=== PATIENT | female | born 1975 | race African-American/Black ===

== ENCOUNTER 2018-04-19 09:46 | Inpatient (IN) | payer SELFPAY, OTHER ==
[2018-04-19 10:04] LABS: POC GLUCOSE 436 mg/dL (70-99)
[2018-04-19 10:55] LABS: ADD MAN DIFF? NO
[2018-04-19 10:57] LABS: BASO # 0.1 x10^3/uL (0.0-0.2); BASO % 1 % (0-3); EOS # 0.2 x10^3/uL (0.0-0.7); EOS % 2 % (0-3); HEMATOCRIT 47.3 % (36.0-47.0); HEMOGLOBIN 15.9 g/dL (12.0-15.5); LYMPH # 3.9 x10^3/uL (1.0-4.8); LYMPH % 36 % (24-48); MEAN CORPUSCULAR HEMOGLOBIN 28 pg (25-35); MEAN CORPUSCULAR HGB CONC 34 g/dL (31-37); MEAN CORPUSCULAR VOLUME 83 fL (79-100); MONO # 0.6 x10^3/uL (0.0-1.1); MONO % 6 % (0-9); NEUT # 6.2 x10^3uL (1.8-7.7); NEUT % 56 % (31-73); PLATELET COUNT 312 x10^3/uL (140-400); RED CELL DISTRIBUTION WIDTH 13.5 % (11.5-14.5)
[2018-04-19 11:10] LABS: ANION GAP 11 (6-14); BLOOD UREA NITROGEN 12 mg/dL (7-20); BUN/CREATININE RATIO 15 (6-20); CALCIUM 9.1 mg/dL (8.5-10.1); CARBON DIOXIDE 24 mmol/L (21-32); CHLORIDE 97 mmol/L (98-107); CREATININE 0.8 mg/dL (0.6-1.0); GFR 95.6; GLUCOSE 403 mg/dL (70-99); POTASSIUM 4.1 mmol/L (3.5-5.1); SODIUM 132 mmol/L (136-145)
[2018-04-19 11:13] LABS: ALBUMIN 3.5 g/dL (3.4-5.0); ALBUMIN/GLOBULIN RATIO 0.9 (1.0-1.7); ALK PHOS 84 U/L (46-116); ALT (SGPT) 14 U/L (14-59); AST (SGOT) 9 U/L (15-37); TOTAL BILIRUBIN 0.8 mg/dL (0.2-1.0); TOTAL PROTEIN 7.6 g/dL (6.4-8.2)
[2018-04-19] MEDS ORDERED: IOHEXOL 300 MG/ML 100ML VIAL. (11:16)
[2018-04-19 11:17] LABS: TROPONINI 0.072 ng/mL (0.000-0.055)
[2018-04-19] MEDS: IOHEXOL 300 MG/ML 100ML VIAL. IV (11:26)
[2018-04-19] MEDS ORDERED: CONTRAST GIVEN. MC (11:30)
[2018-04-19] MEDS: ASPIRIN CHEWABLE 81 MG TABLET. PO (13:11)
[2018-04-19] MEDS: LABETALOL 20 MG/4 ML DISP.SYRIN. IVP (13:44)
[2018-04-19] MEDS: INSULIN REGULAR 100 UNIT/ML 3ML VIAL. IV (13:46)
[2018-04-19 15:38] LABS: AGAP ISTAT 19 mmol/L (6-14); BUN ISTAT 11 mg/dL (8-26); CHLORIDE ISTAT 97 mmol/L (98-110); CREATININE ISTAT 0.6 mg/dL (0.5-1.4); GLUCOSE ISTAT 398 mg/dL (70-99); HEMATOCRIT ISTAT 48 % (36-40); HEMOGLOBIN ISTAT 16.3 g/dL (12-15); ION CA ISTAT 1.16 mmol/L (1.13-1.32); POTASSIUM ISTAT 4.1 mmol/L (3.5-5.0); SODIUM ISTAT 134 mmol/L (135-145); TOT CO2 ISTAT 23 mmol/L (23-32)
[2018-04-19 17:08] LABS: MAGNESIUM 1.7 mg/dL (1.8-2.4)
[2018-04-19 17:27] LABS: THYROID STIM HORMONE (TSH) 0.805 uIU/mL (0.358-3.74)
[2018-04-19] MEDS ORDERED: DEXTROSE 50% 25 GM / 50ML DISP.SYRIN. IV (17:45)
[2018-04-19 18:35] LABS: POC GLUCOSE 277 mg/dL (70-99)
[2018-04-19] MEDS: INSULIN LISPRO 300 UNITS/3 ML INSULN.PEN. SQ (18:41)
[2018-04-19 20:26] LABS: POC GLUCOSE 363 mg/dL (70-99)
[2018-04-19] MEDS: MAGNESIUM SULFATE 1GM 100 ML IV (20:40)
[2018-04-19] MEDS: AMOXICILLIN/K CLAV 875/125MG TABLET. PO (20:40)
[2018-04-19] MEDS ORDERED: TOBRAMYCIN 0.3% OPHTH SOLUTION 5ML BOTTLE. OD (21:00)
[2018-04-19] MEDS ORDERED: DEXAMETHASONE 0.1% OPHTH SOLUTION 5ML BOTTLE. OD (21:00)
[2018-04-19] MEDS ORDERED: TOBRAMYCIN OD (21:00)
[2018-04-19] MEDS ORDERED: DEXAMETHASONE OD (21:00)
[2018-04-20 02:22] LABS: BILIRUBIN,URINE NEGATIVE (NEG); CLARITY,URINE CLEAR; COLOR,URINE YELLOW; GLUCOSE,URINE >=1000 mg/dL (NEG); NITRITE,URINE NEGATIVE (NEG); PROTEIN,URINE NEGATIVE (NEG-TRACE)
[2018-04-20 02:27] LABS: BARBITURATES NEG (NEG); BENZODIAZEPINES NEG (NEG); CANNABINOIDS POS (NEG); COCAINE NEG (NEG); METHADONE NEG (NEG); OPIATES NEG (NEG); PHENCYCLIDINE NEG (NEG)
[2018-04-20 02:38] LABS: BACTERIA,URINE 0 /HPF (0-FEW); RBC,URINE OCC /HPF (0-2); SQUAMOUS EPITHELIAL CELL,UR FEW /LPF; WBC,URINE OCC /HPF (0-4)
[2018-04-20 02:42] LABS: AMPHETAMINE/METHAMPHETAMINE NEG (NEG); ETHANOL, URINE NEG (NEG)
[2018-04-20] MEDS: hydrALAZINE 20 MG/ML VIAL. IVP (03:52)
[2018-04-20 04:07] LABS: ADD MAN DIFF? NO
[2018-04-20 04:20] LABS: BASO # 0.1 x10^3/uL (0.0-0.2); BASO % 1 % (0-3); EOS # 0.3 x10^3/uL (0.0-0.7); EOS % 2 % (0-3); HEMATOCRIT 45.6 % (36.0-47.0); HEMOGLOBIN 15.2 g/dL (12.0-15.5); LYMPH # 3.8 x10^3/uL (1.0-4.8); LYMPH % 35 % (24-48); MEAN CORPUSCULAR HEMOGLOBIN 28 pg (25-35); MEAN CORPUSCULAR HGB CONC 33 g/dL (31-37); MEAN CORPUSCULAR VOLUME 83 fL (79-100); MONO # 0.8 x10^3/uL (0.0-1.1); MONO % 7 % (0-9); NEUT # 6.1 x10^3uL (1.8-7.7); NEUT % 55 % (31-73); PLATELET COUNT 286 x10^3/uL (140-400); RED BLOOD COUNT 5.48 x10^6/uL (3.50-5.40); RED CELL DISTRIBUTION WIDTH 13.1 % (11.5-14.5)
[2018-04-20 04:33] LABS: ALBUMIN 3.2 g/dL (3.4-5.0); ALBUMIN/GLOBULIN RATIO 0.8 (1.0-1.7); ALK PHOS 83 U/L (46-116); ALT (SGPT) 13 U/L (14-59); ANION GAP 8 (6-14); AST (SGOT) 11 U/L (15-37); BLOOD UREA NITROGEN 10 mg/dL (7-20); BUN/CREATININE RATIO 13 (6-20); CALCIUM 8.7 mg/dL (8.5-10.1); CARBON DIOXIDE 26 mmol/L (21-32); CHLORIDE 100 mmol/L (98-107); CREATININE 0.8 mg/dL (0.6-1.0); GFR 95.6; GLUCOSE 325 mg/dL (70-99); POTASSIUM 4.1 mmol/L (3.5-5.1); SODIUM 134 mmol/L (136-145); TOTAL BILIRUBIN 0.6 mg/dL (0.2-1.0); TOTAL PROTEIN 7.1 g/dL (6.4-8.2)
[2018-04-20 04:35] LABS: CHOLESTEROL 236 mg/dL (0-200); HDLC 30 mg/dL (40-60); LDLC 167 mg/dL (0-100); NON-HDL CHOLESTEROL 206 mg/dL (0-129); TRIGLYCERIDES 197 mg/dL (0-150); VLDLC 39 mg/dL (0-40)
[2018-04-20 04:39] LABS: CHOLESTEROL/HDL RATIO 7.9
[2018-04-20 07:55] LABS: POC GLUCOSE 334 mg/dL (70-99)
[2018-04-20] MEDS ORDERED: DEXTROSE 50% 25 GM / 50ML DISP.SYRIN. IV (08:30)
[2018-04-20] MEDS ORDERED: LABETALOL 20 MG/4 ML DISP.SYRIN. IVP (08:30)
[2018-04-20] MEDS: ASPIRIN 325 MG TABLET PO (08:44)
[2018-04-20] MEDS: AMOXICILLIN/K CLAV 875/125MG TABLET. PO (08:44)
[2018-04-20] MEDS: LOSARTAN POTASSIUM 50 MG TABLET. PO (08:48)
[2018-04-20] MEDS: hydroCHLOROthiazide 12.5 MG CAPSULE PO (08:49)
[2018-04-20] MEDS: INSULIN LISPRO 300 UNITS/3 ML INSULN.PEN. SQ ×2 (08:55→12:28)
[2018-04-20] MEDS ORDERED: LISINOPRIL 5 MG TABLET. PO (09:00)
[2018-04-20 12:00] LABS: POC GLUCOSE 371 mg/dL (70-99)
[2018-04-20 12:23] LABS: HEMOGLOBIN A1C 12.5 % (4.8-5.6)
[2018-04-20] MEDS ORDERED: ATORVASTATIN CALCIUM 40 MG TABLET. PO (21:00)
== END 2018-04-20 14:30 | disposition home or self-care (01) | DRG 65 ==
LOC: ER 09:46 → 2 NORTH 14:30
PROVIDERS: Family Medicine
DX: I63.9 Cerebral infarction, unspecified (principal); I16.1 Hypertensive emergency; F32.9 Major depressive disorder, single episode, unspecified; M19.90 Unspecified osteoarthritis, unspecified site; F41.9 Anxiety disorder, unspecified; E11.65 Type 2 diabetes mellitus with hyperglycemia; E78.00 Pure hypercholesterolemia, unspecified; I10 Essential (primary) hypertension; F12.90 Cannabis use, unspecified, uncomplicated; F17.210 Nicotine dependence, cigarettes, uncomplicated; E66.9 Obesity, unspecified; E78.5 Hyperlipidemia, unspecified; Z68.33 Body mass index [BMI] 33.0-33.9, adult; Z91.19 Patient's noncompliance with other medical treatment and regimen; Z79.82 Long term (current) use of aspirin; Z79.899 Other long term (current) drug therapy; Z88.5 Allergy status to narcotic agent; Z91.018 Allergy to other foods; Z79.84 Long term (current) use of oral hypoglycemic drugs; Z90.710 Acquired absence of both cervix and uterus; Z86.718 Personal history of other venous thrombosis and embolism; Z83.3 Family history of diabetes mellitus; Z82.49 Family history of ischemic heart disease and other diseases of the circulatory system; Z83.49 Family history of other endocrine, nutritional and metabolic diseases
CPT/HCPCS: 36415; 70450; 70496; 70498; 70551; 71045; 80047; 80053; 80061; 80307; 81001; 82962; 83036; 83735; 84443; 84484; 84702; 85025; 85610; 92610-GN; 93005; 93880; 96374; 96375; 97161-GP; 97165-GO; 99285-25; C8929; J0360; J1815; J3475; J3490; Q9967